=== PATIENT | female | born 1990 | race Caucasian/White ===

== ENCOUNTER 2017-07-06 17:46 | Emergency (ER) | payer OTHER ==
[2017-07-06 17:59] VITALS: BP 129/62; PULSE 94; RESP 16; TEMP 98
[2017-07-06] MEDS ORDERED: AMOXICILLIN 500MG STARTER PACK 3 CAP BTL PO STA (18:27)
--- NOTE | 2017-07-06 18:29 | ED ---
ENT HPI - General Chief complaint: ENT Stated complaint: Sore throat Time Seen by Provider: 07/06/17 18:03 Source: patient, RN notes reviewed, old records reviewed Mode of arrival: ambulatory Limitations: no limitations - History of Present Illness Initial comments: this patient is a 27-year-old female presents emergency Department chief complaint of 3 days of sore throat. She reports that her entire family was diagnosed with strep throat, and has been on antibiotics. She reports that she' s had fevers, has been alternating Motrin and Tylenol. She denies any specific cough, chest pain, shortness of breath. She denies any nausea or vomiting. - Related Data Previous Rx's Medication Instructions Recorded Amoxicillin 500 mg PO Q12HR #20 cap 07/06/17 Allergies Allergy/AdvReac Type Severity Reaction Status Date / Time No Known Allergies Allergy Verified 07/06/17 17:59 Review of Systems ROS Statement: Those systems with pertinent positive or pertinent negative responses have been documented in the HPI. ROS Other: All systems not noted in ROS Statement are negative. Past Medical History Past Medical History: No Reported History History of Any Multi-Drug Resistant Organisms: None Reported Past Surgical History: No Surgical Hx Reported Past Psychological History: No Psychological Hx Reported Smoking Status: Current every day smoker Past Alcohol Use History: None Reported Past Drug Use History: None Reported General Exam - General Exam Comments Initial Comments: 27-year-old female. No acute distress. Limitations: no limitations General appearance: alert, in no apparent distress Head exam: Present: atraumatic, normocephalic, normal inspection Eye exam: Present: normal appearance, PERRL, EOMI. Absent: scleral icterus, conjunctival injection, periorbital swelling ENT exam: Present: normal exam, mucous membranes moist. Absent: normal oropharynx (erythematous oropharynx. No significant exudates. Oropharynx. Became red, swollen tonsils.) Neck exam: Present: normal inspection, lymphadenopathy (right-sidetonsillar lymphadenopathy.). Absent: tenderness, meningismus Respiratory exam: Present: normal lung sounds bilaterally. Absent: respiratory distress, wheezes, rales, rhonchi, stridor Cardiovascular Exam: Present: regular rate, normal rhythm, normal heart sounds. Absent: systolic murmur, diastolic murmur, rubs, gallop, clicks GI/Abdominal exam: Present: soft, normal bowel sounds. Absent: distended, tenderness, guarding, rebound, rigid Extremities exam: Present: normal inspection, full ROM, normal capillary refill. Absent: tenderness, pedal edema, joint swelling, calf tenderness Back exam: Present: normal inspection Neurological exam: Present: alert, oriented X3, CN II-XII intact Psychiatric exam: Present: normal affect, normal mood Skin exam: Present: warm, dry, intact, normal color. Absent: rash Course Vital Signs 07/06/17 17:57 Temperature 98.0 F Pulse Rate 94 Respiratory 16 Rate Blood Pressure 129/62 O2 Sat by Pulse 99 Oximetry Medical Decision Making - Medical Decision Making patient's 27-year-old female with intermittent fevers, sore throat for the past 2 days. Family has a history of strep throat within the past week. They've all been on antibiotics. Patient doesn't abuse. Oropharynx. Discussed that probably treat the patient with amoxicillin. Given a starter pack in the emergency department. Discussed alternating Motrin Tylenol, and remaining hydrated. Patient was ran on a note for work. Patient agrees to treatment plan will comply. Return parameters were discussed. Disposition Clinical Impression: Strep pharyngitis Disposition: HOME SELF-CARE Condition: Good Instructions: Pharyngitis (ED), Strep Throat (ED) Additional Instructions: patient advised to rest, increase her fluid intake. Alternate Motrin and Tylenol every 4 hours. Complete the antibiotic prescription. Return to emergency department if any alarming signs or symptoms occur. Prescriptions: Amoxicillin 500 mg PO Q12HR #20 cap Referrals: None,Stated [Primary Care Provider] - 1-2 days Hellen Davila MD [STAFF PHYSICIAN] - 1-2 days Time of Disposition: 18:28
== END 2017-07-06 18:41 | disposition home or self-care (01) ==
LOC: EC 17:46
DX: J02.0 Streptococcal pharyngitis (principal); F17.200 Nicotine dependence, unspecified, uncomplicated
CPT/HCPCS: 99283

== ENCOUNTER 2017-10-22 00:59 | Emergency (ER) | payer OTHER ==
[2017-10-22 01:13] VITALS: TEMP 98.1
--- NOTE | 2017-10-22 01:34 | ED ---
Female Urogenital HPI - General Chief complaint: Urogenital Stated complaint: female Time Seen by Provider: 10/22/17 01:14 Source: patient, RN notes reviewed Mode of arrival: ambulatory Limitations: no limitations - History of Present Illness Initial comments: This is a 27-year-old female who presents to the emergency department with chief complaint of possible UTI. Patient states that she has been having dysuria for the past 2 weeks. She states that for the past week she has developed "kidney pain." She states that this occurs at night and is intermittent. She denies any abdominal pain, nausea or vomiting, diarrhea or constipation, fevers or chills. She denies any vaginal bleeding or discharge. Last Menstrual Period: 10/03/17 - Related Data Previous Rx's Medication Instructions Recorded Ciprofloxacin HCl 500 mg PO BID 7 Days #14 tab 10/22/17 Allergies Allergy/AdvReac Type Severity Reaction Status Date / Time No Known Allergies Allergy Verified 10/22/17 01:13 Review of Systems ROS Statement: Those systems with pertinent positive or pertinent negative responses have been documented in the HPI. ROS Other: All systems not noted in ROS Statement are negative. Past Medical History Past Medical History: No Reported History History of Any Multi-Drug Resistant Organisms: None Reported Past Surgical History: No Surgical Hx Reported Past Psychological History: No Psychological Hx Reported Smoking Status: Current every day smoker Past Alcohol Use History: Occasional Past Drug Use History: Heroin General Exam - General Exam Comments Initial Comments: General: Awake and alert, well-developed; in no apparent distress. Does not appear acutely ill. HEENT: Head atraumatic, normocephalic. Pupils are equal, round and reactive to light. Extraocular movements intact. Oropharynx moist without erythema or exudate. Neck: Supple. Normal ROM. Cardiovascular: Regular rate and rhythm. No murmurs, rubs or gallops. Chest symmetrical. Respiratory: Lungs clear to auscultation bilaterally. No wheezes, rales or rhonchi. Normal respiratory effort with no use of accessory muscles. Abdomen: Soft, non-tender, non-distended. No rigidity, rebound or guarding. Normal bowel sounds in all 4 quadrants. No CVA tenderness bilaterally. Musculoskeletal: Normal ROM, no tenderness bilateral upper and lower extremities. Ambulating normally. Skin: [place], warm and dry without rashes or lesions. Neurological: Alert and oriented x3. CN II-XII grossly intact. Speech is fluent and answers are appropriate. No focal neuro deficits. Psychiatric: Normal mood and affect. No overt signs of depression or anxiety noted. Limitations: no limitations Course Vital Signs 10/22/17 01:09 Temperature 98.1 F Pulse Rate 83 Respiratory 18 Rate Blood Pressure 133/68 O2 Sat by Pulse 100 Oximetry Medical Decision Making - Medical Decision Making This is a 27-year-old female who presented to the emergency department with chief complaint of possible urinary tract infection. Patient has been a experiencing dysuria for the past one week. She complained of "kidney pain" that started one week ago. Abdomen is soft and non-tender and there is no CVA tenderness bilaterally. Vital signs are stable and patient is afebrile. She denies any recent fevers or chills. UA revealed moderate blood, positive nitrites, white blood cells, white blood cell clumps and large leukocyte esterase. Urine hCG was negative. Patient will be started on ciprofloxacin. Return parameters were discussed. Patient is in no acute distress. She will be discharged home at this time. She is in agreement with plan and voices understanding. All questions were answered. - Lab Data Lab Results 10/22/17 10/22/17 Range/Units 01:15 01:15 Urine Color Yellow Urine Appearance Turbid H (Clear) Urine pH 5.5 (5.0-8.0) Ur Specific [place] 1.015 (1.001-1.035) Urine Protein 1+ H (Negative) Urine Glucose (UA) Negative (Negative) Urine Ketones 1+ H (Negative) Urine Blood Moderate H (Negative) Urine Nitrite Positive H (Negative) Urine Bilirubin Negative (Negative) Urine Urobilinogen <2.0 (<2.0) mg/dL Ur Leukocyte Esterase Large H (Negative) Urine RBC 83 H (0-5) /hpf Urine WBC >182 H (0-5) /hpf Urine WBC Clumps Many H (None) /hpf Ur Squamous Epith Cells 10 H (0-4) /hpf Urine Bacteria Many H (None) /hpf Urine Mucus Rare H (None) /hpf Urine HCG, Qual Not Detected (Not Detectd) Disposition Clinical Impression: Urinary tract infection Disposition: HOME SELF-CARE Condition: Good Instructions: Urinary Tract Infection in Women (ED) Additional Instructions: Please take medications as prescribed. Please follow up with primary care provider within 1-2 days. Return to emergency department if symptoms should worsen or any concerns arise. Prescriptions: Ciprofloxacin HCl 500 mg PO BID 7 Days #14 tab Is patient prescribed a controlled substance at d/c from ED?: No Referrals: None,Stated [Primary Care Provider] - 1-2 days Time of Disposition: 02:22
[2017-10-22 01:58] LABS: Appearance,Urine Turbid (Clear); Bacteria,Urine Many /hpf; Bilirubin,Urine Negative (Negative); Blood,Urine Moderate (Negative); Color,Urine Yellow; Glucose,Urine (UA) Negative (Negative); Ketones,Urine 1+ (Negative); Leukocyte Esterase,Urine Large (Negative); Mucus,Urine Rare /hpf; Nitrite,Urine Positive (Negative); PH, Urine 5.5 (5.0-8.0); Protein,Urine 1+ (Negative); RBC,Urine 83 /hpf (0-5); Specific Gravity,Urine 1.015 (1.001-1.035); Squamous Epithelial Cell,Urine 10 /hpf (0-4); Urobilinogen,Urine <2.0 mg/dL (<2.0); WBC,Urine >182 /hpf (0-5)
[2017-10-22] MEDS ORDERED: CIPROFLOXACIN HCL 500 MG TAB PO STA (02:21)
[2017-10-22 02:31] VITALS: BP 134/58; PULSE 86; RESP 16
== END 2017-10-22 02:33 | disposition home or self-care (01) ==
LOC: EC 00:59
DX: N39.0 Urinary tract infection, site not specified (principal); F17.200 Nicotine dependence, unspecified, uncomplicated
CPT/HCPCS: 81001; 81025; 87086; 99283

== ENCOUNTER 2017-11-06 03:57 | Emergency (ER) | payer OTHER ==
[2017-11-06 04:03] VITALS: TEMP 98.4
[2017-11-06] MEDS ORDERED: DIPH,PERTUS(ACELL)TETVAC-LF 0.5 ML VIAL IM ONE (04:26)
--- NOTE | 2017-11-06 04:37 | ED ---
Lower Extremity Injury HPI - General Chief Complaint: Extremity Injury, Lower Stated Complaint: Toe injury Time Seen by Provider: 11/06/17 04:12 Source: patient, family Mode of arrival: ambulatory Limitations: no limitations - History of Present Illness Initial Comments: This patient is 27-year-old woman who presents to be evaluated for injury to the right great toenail. The patient states that she has history of nail deformity. The nail is buckled and sticks up quite a bit from the toe. She states that as she was walking around the home tonight she struck her foot against something and that avulsed the nail. She states that it is barely hanging on. She states that she did try to hold down the bandage, but it remains nearly entirely avulsed. Patient denies any other injury. She does not recall when her last tetanus shot was MD Complaint: foot injury Onset/Timin -: hour(s) Injury: Toes: Right Type of Injury: blunt Place: home Severity: moderate Improves With: nothing Worsens With: nothing Context: direct blow Treatments Prior to Arrival: bandage - Related Data Home Medications Medication Instructions Recorded Confirmed No Known Home Medications [No 11/06/17 11/06/17 Known Home Medications] Allergies Allergy/AdvReac Type Severity Reaction Status Date / Time No Known Allergies Allergy Verified 11/06/17 04:02 Review of Systems ROS Statement: Those systems with pertinent positive or pertinent negative responses have been documented in the HPI. ROS Other: All systems not noted in ROS Statement are negative. Musculoskeletal: Reports: other (Toe injury) Hematological/Lymphatic: Denies: easy bleeding Past Medical History Past Medical History: No Reported History History of Any Multi-Drug Resistant Organisms: None Reported Past Surgical History: No Surgical Hx Reported Past Psychological History: No Psychological Hx Reported Smoking Status: Current every day smoker Past Alcohol Use History: Occasional Past Drug Use History: Heroin General Exam Limitations: no limitations General appearance: alert, in no apparent distress Extremities exam: Present: normal capillary refill, other (The nail of the right great toe has been nearly entirely avulsed.) Skin exam: Present: warm, dry, normal color. Absent: rash Course Vital Signs 11/06/17 11/06/17 11/06/17 03:58 04:48 05:35 Temperature 98.4 F Pulse Rate 80 77 65 Respiratory 20 18 18 Rate Blood Pressure 131/70 130/64 115/53 O2 Sat by Pulse 100 100 99 Oximetry Medical Decision Making - Medical Decision Making Patient is 27-year-old woman presenting with partial avulsion of the nail of the great toe. 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 We discussed risks, benefits of having this performed, and at this point the patient is accepting of the risks. Given the chronic deformity of this does seem acceptable. I did provide a digital block of the toe, and removed the small portion of the nail which is still attached in the matrix, again the majority had already been avulsed. Dressing applied by nursing staff. Discussed further care and follow- up, including signs and symptoms of infection and other return parameters. Disposition Clinical Impression: Nail avulsion of toe Disposition: HOME SELF-CARE Condition: Good Instructions: Nail Avulsion (ED) Is patient prescribed a controlled substance at d/c from ED?: No Referrals: None,Stated [Primary Care Provider] - 1-2 days
[2017-11-06 04:50] VITALS: RESP 18
[2017-11-06 05:36] VITALS: BP 115/53; PULSE 65
== END 2017-11-06 05:58 | disposition home or self-care (01) ==
LOC: EC 03:57
DX: S91.201A Unspecified open wound of right great toe with damage to nail, initial encounter (principal); F17.200 Nicotine dependence, unspecified, uncomplicated; Z23 Encounter for immunization; W22.8XXA Striking against or struck by other objects, initial encounter; Y93.01 Activity, walking, marching and hiking; Y92.009 Unspecified place in unspecified non-institutional (private) residence as the place of occurrence of the external cause
CPT/HCPCS: 90471; 90715; 99283